=== PATIENT | male | born 1950 | race Caucasian/White ===

== ENCOUNTER 2018-12-08 10:08 | Inpatient (IN) | payer OTHER ==
[~2018-12-08] VITALS: Ht 180.3 cm; Wt 73.5 kg
[2018-12-08 10:08] VITALS: BP 137/94
[~2018-12-08 10:08] MED LIST: ASPIRIN EC325 M1 PO; ATIVAN1 MG PO; FOLIC ACID1 MG PO; LISINOPRIL2.5 MG PO; NOHOMEMEDICATIONS; UNICOMPLEX M TA1 TA1 PO; VITAMIN B-1100 MG PO
[2018-12-08 11:10] LABS: ABSOLUTE NEUTROPHILS 5.6 thou/uL (1.4-8.2); BASOPHILS 0.6 % (0.0-2.0); EOSINOPHILS 2.4 % (0.0-3.0); HEMATOCRIT 45.4 % (42.0-52.0); HEMOGLOBIN 15.2 gm/dL (14.0-18.0); LYMPHOCYTES 20.8 % (24.0-44.0); MCHC 33.5 g/dL (28.0-37.0); MCV 92.5 fL (80.0-100.0); MONOCYTES 7.1 % (1.0-8.0); PLATELET COUNT 279 thou/uL (150-400); POLYS 69.1 % (36.0-66.0); RBC 4.91 mil/uL (4.50-6.00); RDW 13.9 % (10.5-14.5); WBC 8.1 thou/uL (4.0-11.0)
[2018-12-08 11:23] LABS: APTT 32.2 Seconds (24.5-32.8); PROTIME 10.3 Seconds (9.3-11.4)
[2018-12-08 11:24] LABS: ANION GAP 4 mmol/L (7-16); BUN 15 mg/dL (7-18); CALCIUM 9.3 mg/dL (8.5-10.1); CHLORIDE 102 mmol/L (98-107); CO2 31 mmol/L (21-32); CREATININE 0.9 mg/dL (0.7-1.3); GLUCOSE 97 mg/dL (74-106); POTASSIUM 4.5 mmol/L (3.5-5.1); SODIUM 137 mmol/L (136-145)
[2018-12-08 11:29] LABS: URINE BILIRUBIN NEGATIVE (Negative); URINE BLOOD NEGATIVE (Negative); URINE CLARITY CLEAR; URINE COLOR YELLOW; URINE GLUCOSE-RANDOM* NEGATIVE (Negative); URINE KETONES NEGATIVE (Negative); URINE LEUKOCYTES-REFLEX NEGATIVE (Negative); URINE NITRITE-REFLEX NEGATIVE (Negative); URINE PROTEIN (DIPSTICK) NEGATIVE (Negative); URINE SPECIFIC GRAVITY 1.015 (1.005-1.035); URINE UROBILINOGEN 0.2 E.U./dl (0.2-1.0)
[2018-12-08 11:31] LABS: ALBUMIN 3.8 g/dL (3.4-5.0); MAGNESIUM 2.1 mg/dL (1.8-2.4); SGOT 21 U/L (15-37); SGPT 22 U/L (30-65); TOTAL BILIRUBIN 0.7 mg/dL (<0.1-1.0); TOTAL PROTEIN 7.4 g/dL (6.4-8.2); TROPONIN-I <0.06 ng/mL (<0.06)
[2018-12-08 11:35] LABS: AMP/METHAMP Negative (Negative); BARBITURATES Negative (Negative); BENZODIAZEPINES Negative (Negative); COCAINE Negative (Negative); METHADONE Negative (Negative); OPIATES Negative (Negative); PCP Negative (Negative)
[2018-12-08 12:17] VITALS: BP 137/94
[2018-12-08 12:44] VITALS: BP 137/94
[2018-12-08 13:06] VITALS: BP 132/74
--- NOTE | 2018-12-08 15:56 | NUR ---
PT ARRIVED TO UNIT VIA ER TRANSPORT AT APPROX. 1315. PT HAS NO C/O OF PAIN, N/V. PT ORIENTED TO ROOM AND SURROUNDINGS. CONSENTS SIGNED, ADMISSION COMPLETE. TELEMETRY MONITORING SHOWS SINUS JASON. PT WORKED WITH PHYSICAL AND OCCUPATIONAL THERAPY. [facility] Q4. PT INSTRUCTED TO CALL FOR ASSISTANCE WITH AMBULATION D/T TO PRIMARY C/O OF DIZZINESS. PT IS RESTING COMFORTABLY IN ROOM AT THIS TIME, IVF INFUSING.
[2018-12-08 16:27] VITALS: BP 125/63
[2018-12-08 19:13] VITALS: BP 99/61
[2018-12-09] VITALS (7 sets, daily range): BP systolic 106–129; BP diastolic 61–78
[2018-12-09 00:11] LABS: GLYCOHEMOGLOBIN (HGB A1C) 5.4 % (4.8-5.6)
--- NOTE | 2018-12-09 01:54 | NUR ---
resting quietly tonight. denies pain. continues on iv fluids. encouraged him to call out if having any symptoms with vision or that are similar to his admitting symptoms. careplan reviewed. prgressing toward discharge goals.
[2018-12-09 05:45] LABS: ABSOLUTE NEUTROPHILS 4.2 thou/uL (1.4-8.2); BASOPHILS 0.8 % (0.0-2.0); EOSINOPHILS 3.7 % (0.0-3.0); HEMATOCRIT 39.7 % (42.0-52.0); HEMOGLOBIN 13.3 gm/dL (14.0-18.0); MCH 30.9 pg (26.0-34.0); MCHC 33.5 g/dL (28.0-37.0); MONOCYTES 8.8 % (1.0-8.0); PLATELET COUNT 235 thou/uL (150-400); POLYS 57.7 % (36.0-66.0); RBC 4.32 mil/uL (4.50-6.00); RDW 13.5 % (10.5-14.5); WBC 7.3 thou/uL (4.0-11.0)
[2018-12-09 06:03] LABS: CALCIUM 8.6 mg/dL (8.5-10.1); CREATININE 0.8 mg/dL (0.7-1.3); POTASSIUM 4.1 mmol/L (3.5-5.1)
--- NOTE | 2018-12-09 07:56 | EKG ---
[address] [place] [place] [address] ELECTROCARDIOGRAM REPORT Name: ALEC RODRIGES Room #: 355-P ADM IN M.R.#: [id number] Admission: 12/08/18 Attend Phys: Corby Rajput MD Discharge: Date of : 52 Report #: [id number] THIS REPORT FOR: //name// [facility] ED Test Date: 2018-12-08 Test Time: 10:24:50 Pat Name: ALEC RODRIGES Department: Room: [facility] Gender: M Director Workers Compensation: JAMARCUS : 1950 Requested By: Pb Edmond Order Number: [id number] MD: Ashkan Li Measurements Intervals Nichols Rate: 52 P: 82 AK: 163 QRS: -55 QRSD: 104 T: 56 QT: 475 QTc: 442 Interpretive Statements Sinus rhythm Atrial premature complex LAD, consider left anterior fascicular block RSR' in V1 or V2, probably normal variant Compared to ECG 11/14/2013 10:31:14 Atrial premature complex(es) now present RSR' in V1 or V2 now present Electronically Signed On 12-09-2018 7:56:26 [employer] by Ashkan Li [email or web address] <ELECTRONICALLY SIGNED> By: Ashkan Li MD 12/09/18 0756 1024 1024 Ashkan Li MD /EPI
[2018-12-09 10:35] LABS: CHOLESTEROL 201 mg/dL (<200); HDL CHOLESTEROL 44 mg/dL (>40); LDL CHOLESTEROL 139 mg/dL (<100); TC:HDL 4.6 Ratio (Not establshd); TRIGLYCERIDE 91 mg/dL (<150); VLDL 18 mg/dL (<40)
--- NOTE | 2018-12-09 14:51 | NUR ---
Assumed care of patient at 0700. Vitals have been stable, although patient is sinus lee - mid 40s-50s. Patient is alert and oriented x4, pleasant. Denies any dizziness or vision changes. Steady gait. Up ad arturo in room. Calls appropriately. Neurology ordered cardio consult for patient. Echo ordered - awaiting results. Cardiology requesting records from previous stress test. Patient cannot remember where stress test was performed in the past - he believes it may have been at his PCP's office, [facility] in [place], [place]. Called office to inquire if patient had any cardiology records on file. They cannot see if he does, but recommend faxing medical release paper to their medical records department. Release of medical info obtained from patient and faxed to office - awaiting reply at this time. Patient is anxious to discharge home, but understands that additional testing may be obtained while inpatient. Progressing towards POC. Will continue to monitor.
[2018-12-10 00:15] VITALS: BP 120/69
[2018-12-10 04:39] VITALS: BP 123/75
--- NOTE | 2018-12-10 05:34 | NUR ---
PT MAKING PROGRESS TOWARDS GOALS. SCORING BRIEF NIH AT ZERO THROUGHOUT THE NIGHT. HAS DENIED ANY DIZZINESS AT REST OR WHEN UP OUT OF BED.
[2018-12-10 07:51] VITALS: BP 137/74
--- NOTE | 2018-12-10 11:09 | NUR ---
ASSUMED PATIENT CARE AT 0715. A&OX4. NO COMPLAINTS OF PAIN. COMPLAINTS OF BEING DIZZY AND NAUSEOUS THIS MORNING. ZOFRAN GIVEN AND PATIENT ATE BREAKFAST. PATIENT STATED THEY FELT MUCH BETTER AFTER EATING. UP ADLIB. STEADY. PLAN IS FOR PATIENT TO GO HOME WITH A TRANSMISSION SUPERINTENDENT IN PLACE DUE TO BRADYCARDIA AND FOLLOW UP WITH CARDIOLOGY AN OUTPATIENT.
[2018-12-10 11:17] VITALS: BP 124/73
[2018-12-10] MEDS ORDERED: ACETAMINOPHEN325 M1 PO (12:24)
[2018-12-10] MEDS ORDERED: ASPIRIN325 PO (12:24)
[2018-12-10 12:39] VITALS: BP 124/73
--- NOTE | 2018-12-13 10:08 | 2DMMODE ---
[facility] [address] [place] [address] 2 D/M-MODE ECHOCARDIOGRAM Name: ALEC RODRIGES Room #: 355-P [facility] IN M.R.#: [id number] Admission: 12/08/18 Attend Phys: Corby Rajput MD Discharge: 12/10/18 Date of : 52 Date of Service: 12/09/18 1524 Report #: [id number] THIS REPORT FOR: //name// APPROVED REPORT Study performed: 12/09/2018 13:25:42 EXAM: Comprehensive 2D, Doppler, and color-flow Echocardiogram Patient Location: In-Patient Room #: 355 Status: routine BSA: 1.91 HR: 50 bpm BP: 119/75 mmHg Other Information Study Quality: Adequate Indications Bradycardia Hx TIA 2D Dimensions RVDd: 31.44 mm IVSd: 8.88 (7-11mm) LVOT Diam: 23.67 (18-24mm) LVDd: 43.45 mm PWd: 10.56 (7-11mm) Ascending Ao: 37.19 (22-36mm) LVDs: 32.08 (25-40mm) Aortic Root: 32.63 mm IVC: 25.00 mm Volumes Left Atrial Volume (Systole) Single Plane 4CH: 62.91 mL Single Plane 2CH: 50.65 mL LA ESV Index: 34.00 mL/m2 Aortic Valve AoV Peak You.: 1.54 m/s AO Peak Gr.: 9.46 mmHg LVOT Max P.64 mmHg LVOT Max V: 1.19 m/s MIRTA Vmax: 3.40 cm2 AI Vmax: 4.80 m/s AI Davison: 1.72 m/s2 AI PHT: 807.74 ms Mitral Valve [facility] [address] [address] [place] [address] 2 D/M-MODE ECHOCARDIOGRAM Name: ALEC RODRIGES Room #: 355-[facility] IN .R.#: [id number] Admission: 12/08/18 Attend Phys: Corby Rajput MD Discharge: 12/10/18 Date of : 52 Date of Service: 12/09/18 1524 Report #: [id number] E/A Ratio: 1.3 MV Decel. Time: 244.84 ms MV E Max You.: 0.78 m/s MV A You.: 0.58 m/s MV PHT: 71.00 ms IVRT: 110.73 ms Pulmonary Valve PV Peak You.: 0.86 m/s PV Peak Gr.: 2.94 mmHg Pulmonary Vein P Vein S: 0.67 m/s P Vein A: 0.23 m/s P Vein D: 0.47 m/s P Vein A Dur.: 152.2 msec P Vein S/D Ratio: 1.43 Tricuspid Valve TR Peak You.: 2.19 m/s RAP Estimate: 15.00 mmHg TR Peak Gr.: 19.18 mmHg PA Pressure: 34.00 mmHg Left Ventricle The left ventricle is normal size. There is normal left ventricular wall thickness. The left ventricular systolic function is normal. The left ventricular ejection fraction is within the normal range. LVEF is 50-55%. The left ventricular diastolic function is normal. Right Ventricle The right ventricle is normal size. The right ventricular systolic function is normal. Atria Left atrium is at the upper limits of normal. Right atrium is at the upper limits of normal. Aortic Valve Aortic valve is mildly calcified. Mild to moderate aortic regurgitation. There is no aortic valvular stenosis. Mitral Valve Mitral valve leaflets are mildly thickened. Mild mitral regurgitation. No evidence of mitral valve stenosis. Tricuspid Valve The tricuspid valve is normal in structure. Trace to mild tricuspid regurgitation. PAP is estimated at 34 mmHg. [place] [id number] 2 D/M-MODE ECHOCARDIOGRAM Name: ALEC RODRIGES Room #: 355-P [facility] IN .R.#: [id number] Admission: 12/08/18 Attend Phys: Corby Rajput MD Discharge: 12/10/18 Date of : 52 Date of Service: 12/09/18 1524 Report #: [id number] Pulmonic Valve The pulmonary valve is normal in structure. Trace to mild pulmonic regurgitation. Great Vessels The aortic root is normal in size. IVC is dilated and collapses <50% with inspiration. Pericardium There is no pericardial effusion. <Conclusion> The left ventricle is normal size. LVEF is 50-55%. Left atrium is at the upper limits of normal. Right atrium is at the upper limits of normal. Aortic valve is mildly calcified. Mild to moderate aortic regurgitation. There is no aortic valvular stenosis. Mitral valve leaflets are mildly thickened. Mild mitral regurgitation. The tricuspid valve is normal in structure. Trace to mild tricuspid regurgitation. PAP is estimated at 34 mmHg. The pulmonary valve is normal in structure. Trace to mild pulmonic regurgitation. There is no pericardial effusion. <ELECTRONICALLY SIGNED> By: Humphrey Bynum MD 12/09/18 1524 1524 1524 Humphrey Bynum MD /INF
--- NOTE | 2018-12-13 10:57 | HC ---
[facility] [place] [address] CONSULTATION Name: ALEC RODRIGES Room #: 355-P [facility] IN M.R.#: [id number] Admission: 12/08/18 Attend Phys: Corby Rajput MD Discharge: 12/10/18 Date of : 52 Report #: [id number] THIS REPORT FOR: //name// CC: Corby Barrteo HISTORY OF PRESENT ILLNESS: The patient is a 68-year-old male who came to the Emergency Room stating that he was dizzy. The patient has a prior history of TIA and continues to smoke. When this episode happened he had blurry vision as well. This was associated with nausea. He has had more than one episode. He denies a spinning sensation. He had no weakness in his arms or legs, nor did he have slurred speech. The patient had a CT scan of the head and this was unremarkable. PAST MEDICAL HISTORY: TIA. PAST SURGICAL HISTORY: Left knee arthroscopy. MEDICATIONS: None. ALLERGIES: PENICILLIN. VITAL SIGNS: Temperature is 36.8, pulse rate 45, respiratory rate 18, blood pressure 106/75, bedside pulse oximetry 97% on room air. LABORATORY DATA: White blood cell count is 7.3, hemoglobin 13.3, hematocrit 39.7, MCV 92, platelet count 235,000. Urinalysis negative. Chemistry: Sodium 139, potassium 4.1, chloride 104, carbon dioxide 25, BUN 15, creatinine 0.8, GFR 96. Hemoglobin A1c 5.4. Liver functions normal. Toxicology negative. NEUROLOGIC: Cranial nerves 2-12 are grossly intact. Motor exam demonstrates symmetrical strength in all 4 extremities with tone and bulk normal. Reflexes are symmetrical throughout. Plantar responses are flexor. Gait was not tested. IMPRESSION AND PLAN: I explained to the patient that this is most likely not a stroke. Typically when one is dizzy, this is either something that comes from the inner ear or given the fact that he has bradycardia and this morning had a pulse rate of 45, may come from a low heart rate. In that light, I have asked Cardiology to see the patient. The patient has had neuroimaging of the head and neck and this was all unremarkable. [facility] [address] [place] [address] CONSULTATION Name: ALEC RODRIGES Room #: 355-P DIS IN M.R.#: [id number] Admission: 12/08/18 Attend Phys: Corby Rajput MD Discharge: 12/10/18 Date of : 52 Report #: [id number] I recommend aside from the Cardiology consult, the patient take aspirin 325 mg daily. He should also give strong consideration to his cigarette use and try to stop smoking. I thank you for your kind referral of the patient. <ELECTRONICALLY SIGNED> By: Naila Blank DO 12/13/18 1057 1014 1035 Naila Blank DO /nt
== END 2018-12-10 13:45 | disposition home or self-care (01) | DRG 69 ==
LOC: ER 10:08 → 3W 11:26 → EROBS 11:26 → 3W 12:47 → ENTRNSPT 12-10 13:35 → EDTRNSPTSTS 12-10 13:42 → 3W 12-10 13:45
PROVIDERS: Emergency Medicine; Nurse Practitioner; ADMIT Internal Medicine
DX: G45.9 Transient cerebral ischemic attack, unspecified (principal); R00.1 Bradycardia, unspecified; H53.2 Diplopia; F17.210 Nicotine dependence, cigarettes, uncomplicated; E78.5 Hyperlipidemia, unspecified; Z88.0 Allergy status to penicillin; Z71.6 Tobacco abuse counseling
CPT/HCPCS: 10879